=== PATIENT | female | born 1930 | race Caucasian/White ===

== ENCOUNTER → 2017-11-18 | Outpatient (CLI) | payer MEDICARE | END | disposition home or self-care (01) | LOC: OIH 13:12 | PROVIDERS: ATTEND Family Medicine | DX: I70.0 Atherosclerosis of aorta (principal); R68.83 Chills (without fever); R60.9 Edema, unspecified; Z88.3 Allergy status to other anti-infective agents; Z77.22 Contact with and (suspected) exposure to environmental tobacco smoke (acute) (chronic) | CPT/HCPCS: 71046 ==

== ENCOUNTER → 2018-02-24 | Outpatient (CLI) | payer MEDICARE | END | disposition home or self-care (01) | LOC: OIH 16:15 | PROVIDERS: ATTEND Internal Medicine | DX: R91.8 Other nonspecific abnormal finding of lung field (principal); M47.815 Spondylosis without myelopathy or radiculopathy, thoracolumbar region | CPT/HCPCS: 71046 ==

== ENCOUNTER 2018-03-08 18:01 | Inpatient (IN) | payer MEDICARE ==
[~2018-03-08] VITALS: Ht 170.2 cm; Wt 78.0 kg
[2018-03-08] MEDS: SODIUM CHLORIDE 0.9% 1000ML 1,000 ML IV SCH (19:58)
[2018-03-08] MEDS ORDERED: DIPHENHYDRAMINE HCL 25 MG CAPSULE PO PRN (20:00)
[2018-03-08] MEDS: AZITHROMYCIN 500MG+NS 250ML 250 ML IV SCH (20:00)
[2018-03-08] MEDS: METHYLPREDNISOLONE SOD SUCC 125MG/2ML VIAL IVP SCH (20:00)
[2018-03-08] MEDS: CEFTRIAXONE SODIUM 1 GM IV SCH (20:00)
[2018-03-08] MEDS ORDERED: ACETAMINOPHEN 325 MG TAB PO PRN (20:00)
[2018-03-08] MEDS ORDERED: ONDANSETRON HCL 4 MG/2 ML VIAL IV PRN (20:00)
[2018-03-08] MEDS ORDERED: FAMOTIDINE 20MG TAB 20 MG TAB ONE (20:19)
[2018-03-08] MEDS ORDERED: SODIUM CHLORIDE 0.9% 1000ML 1,000 ML IV ONE (20:19)
[2018-03-08] MEDS ORDERED: AZITHROMYCIN 500MG+NS 250ML 250 ML IV ONE (20:20)
[2018-03-08] MEDS ORDERED: METHYLPREDNISOLONE SOD SUCC 125MG/2ML VIAL ONE (20:20)
[2018-03-08] MEDS ORDERED: CEFTRIAXONE SODIUM 1 GM ONE (20:21)
[2018-03-08 20:35] LABS: BASOPHILS % (AUTO) 0.6 % (0.0-5.0); EOSINOPHILS % (AUTO) 1.8 % (0.0-8.0); HEMATOCRIT 38.4 % (36-48); LYMPHOCYTES % (AUTO) 24.1 % (21.0-51.0); MEAN CORPUSCULAR HEMOGLOBIN 30.2 pg (27.0-33.0); MEAN CORPUSCULAR HGB CONC 33.3 g/dL (32.0-36.0); MEAN CORPUSCULAR VOLUME 90.7 fL (79-99); MONOCYTES % (AUTO) 9.7 % (3.0-13.0); NEUTROPHILS % (AUTO) 63.8 % (40.0-77.0); NUCLEATED RED BLOOD CELLS 0.1 % (0.0-0.19); PLATELET COUNT (AUTO) 188 K/uL (130-400); RED BLOOD CELL COUNT(AUTO) 4.23 MIL/uL (4.00-5.50); RED CELL DISTRIBUTION WIDTH 13.7 % (11.0-15.5); WHITE BLOOD COUNT (AUTO) 6.5 K/uL (4.8-10.8)
[2018-03-08 20:45] LABS: ALBUMIN 3.6 g/dL (3.5-5.0); BILIRUBIN,TOTAL 0.5 mg/dL (0.2-1.0); CREATININE 1.4 mg/dL (0.5-1.5); POTASSIUM 4.5 mmol/L (3.5-5.1); TOTAL PROTEIN, SERUM 7.5 g/dL (6.0-8.3)
[2018-03-08] MEDS ORDERED: FAMOTIDINE 20MG TAB 20 MG TAB PO SCH (21:00)
[2018-03-08 21:09] LABS: B-TYPE NATRIURETIC PEPTIDE 140 pg/mL (0-100)
[2018-03-08 21:46] LABS: ERYTHROCYTE SEDIMENTATION RATE 52 MM/HR (0-30)
[2018-03-08 22:10] VITALS: BP 146/74
[2018-03-08] MEDS ORDERED: OSELTAMIVIR PHOSPHATE 75 MG CAP PO SCH ×2 (22:30→23:30)
[2018-03-08] MEDS ORDERED: AEC81 PO (23:06)
[2018-03-08] MEDS ORDERED: LOVA20TA3 PO (23:06)
[2018-03-08] MEDS ORDERED: TRIA1TAB91 PO (23:06)
[2018-03-08] MEDS ORDERED: LORA10TA7 PO (23:06)
[2018-03-08] MEDS ORDERED: LISI-613 PO (23:06)
[2018-03-08] MEDS ORDERED: LEVO50TA11 PO (23:06)
[2018-03-09] MEDS ORDERED: ALBUTEROL SULFATE 0.083% 2.5 MG/3 ML INH IH SCH
[2018-03-09] MEDS ORDERED: CLONIDINE HCL 0.1 MG TABLET PO PRN (02:30)
[2018-03-09] MEDS ORDERED: POTASSIUM CHLORIDE 20MEQ/100ML 100 ML IV PRN (02:30)
[2018-03-09] MEDS ORDERED: GLUCAGON 1MG KIT 1 MG ML IM PRN (02:30)
[2018-03-09] MEDS ORDERED: POTASSIUM CHLORIDE 20 MEQ ERTAB PO PRN (02:30)
[2018-03-09] MEDS ORDERED: GUAIFENESIN-DM 200/20 MG 10 ML PO PRN (02:30)
[2018-03-09] MEDS ORDERED: POTASSIUM CHLORIDE 10% ELIXIR 20 MEQ/15 ML UDCUP PO PRN (02:30)
[2018-03-09] MEDS ORDERED: LACTULOSE 20 GM/30 ML UDCUP PO PRN (02:30)
[2018-03-09] MEDS ORDERED: LIDOCAINE HCL-MPF 1% 2ML VIAL IJ PRN (02:30)
[2018-03-09] MEDS ORDERED: MAG HYDROX/AL HYDROX/SIMETH ES 30 ML SUSP UDCUP PO PRN (02:30)
[2018-03-09] MEDS ORDERED: ZOLPIDEM TARTRATE 5 MG TAB PO PRN (02:30)
[2018-03-09] MEDS ORDERED: DEXTROSE 50%-WATER 50 ML DISP.SYRIN IV PRN (02:30)
[2018-03-09] MEDS ORDERED: NITROGLYCERIN 0.4 MG SL TAB SL PRN (02:30)
[2018-03-09 04:37] VITALS: BP 110/60
[2018-03-09 04:52] LABS: HEMATOCRIT 35.2 % (36-48); MEAN CORPUSCULAR HEMOGLOBIN 29.9 pg (27.0-33.0); MEAN CORPUSCULAR HGB CONC 33.2 g/dL (32.0-36.0); PLATELET COUNT (AUTO) 172 K/uL (130-400); RED BLOOD CELL COUNT(AUTO) 3.91 MIL/uL (4.00-5.50); RED CELL DISTRIBUTION WIDTH 13.9 % (11.0-15.5)
[2018-03-09 05:11] LABS: BILIRUBIN,TOTAL 0.4 mg/dL (0.2-1.0); CREATININE 1.5 mg/dL (0.5-1.5); POTASSIUM 4.5 mmol/L (3.5-5.1); TOTAL PROTEIN, SERUM 6.6 g/dL (6.0-8.3)
[2018-03-09] MEDS: METHYLPREDNISOLONE SOD SUCC 125MG/2ML VIAL IVP SCH ×2 (05:20→12:15)
[2018-03-09] MEDS: SODIUM CHLORIDE 0.9% 1000ML 1,000 ML IV SCH ×2 (06:24→16:54)
[2018-03-09] MEDS: IPRATROPIUM/ALBUTEROL SULFATE 3 ML SOLUTION IH SCH ×2 (06:47→11:01)
[2018-03-09] MEDS: INSULIN R PO SS1 SQ SCH ×4 (07:30→21:00)
[2018-03-09 08:00] VITALS: BP 122/55
[2018-03-09] MEDS: OSELTAMIVIR SUSP 15 MG/ML (6 CAPS/29ML) PO SCH ×2 (08:44)
[2018-03-09] MEDS: ASPIRIN 81 MG EC TAB PO SCH (08:45)
[2018-03-09] MEDS: LORATADINE 10 MG TABLET PO SCH (08:45)
[2018-03-09] MEDS: FAMOTIDINE 20MG TAB 20 MG TAB PO SCH (08:45)
[2018-03-09] MEDS: LISINOPRIL 20 MG TABLET PO SCH (08:46)
[2018-03-09] MEDS: ENOXAPARIN SODIUM 40 MG/0.4 ML SYRINGE SQ SCH (08:47)
--- NOTE | 2018-03-09 11:42 | NUR ---
STATUS CHANGES, CHANGED TO IP STATUS; ORDER FROM DR. Hercules PRIOR TO ADMIT MD CHANGE.
[2018-03-09 12:00] VITALS: BP 144/71
[2018-03-09 16:00] VITALS: BP 119/58
[2018-03-09] MEDS ORDERED: IPRATROPIUM/ALBUTEROL SULFATE 3 ML SOLUTION IH PRN (16:00)
[2018-03-09 19:00] VITALS: BP 136/69
[2018-03-09] MEDS: AZITHROMYCIN 500MG+NS 250ML 250 ML IV SCH (20:32)
[2018-03-09] MEDS: CEFTRIAXONE SODIUM 1 GM IV SCH (20:32)
[2018-03-09] MEDS: ATORVASTATIN CALCIUM 10 MG TABLET PO SCH (20:32)
[2018-03-09] MEDS: GUAIFENESIN-DM 200/20 MG 10 ML PO PRN (20:50)
[2018-03-10] VITALS: BP 121/66
[2018-03-10 04:00] VITALS: BP 116/65
[2018-03-10] MEDS: GUAIFENESIN-DM 200/20 MG 10 ML PO PRN ×2 (04:32→19:48)
[2018-03-10] MEDS: SODIUM CHLORIDE 0.9% 1000ML 1,000 ML IV SCH ×2 (04:33→14:08)
[2018-03-10] MEDS: IPRATROPIUM/ALBUTEROL SULFATE 3 ML SOLUTION IH PRN ×3 (07:31→14:29)
[2018-03-10 08:00] VITALS: BP 97/50
[2018-03-10] MEDS: LORATADINE 10 MG TABLET PO SCH (08:01)
[2018-03-10] MEDS: FAMOTIDINE 20MG TAB 20 MG TAB PO SCH (08:01)
[2018-03-10] MEDS: LEVOTHYROXINE 50 MCG TABLET PO SCH (08:01)
[2018-03-10] MEDS: ASPIRIN 81 MG EC TAB PO SCH (08:01)
[2018-03-10] MEDS: OSELTAMIVIR SUSP 15 MG/ML (6 CAPS/29ML) PO SCH ×2 (08:02)
[2018-03-10] MEDS: ENOXAPARIN SODIUM 40 MG/0.4 ML SYRINGE SQ SCH (08:02)
[2018-03-10] MEDS: LISINOPRIL 20 MG TABLET PO SCH (09:00)
--- NOTE | 2018-03-10 11:54 | NUR ---
Patient taken to procedure for EGD
[2018-03-10 12:00] VITALS: BP 115/59
[2018-03-10 16:00] VITALS: BP 110/53
--- NOTE | 2018-03-10 16:00 | NUR ---
DAEV Luna PT, AAOX3, ENG SPEAKING,LIVES ALONE, JO-ANN KOWALSKI CLOSE BY/SUPPORTIVE WILL PROVIDE TRANSPORT, NO DME, NO HH, NO DEVON, MELISA W ADL, PLAN IS HOME; Addendum: 03/11/18 at 0826 by MARIAH AVENDANO RN Amended: Links added.
[2018-03-10 19:00] VITALS: BP 138/70
[2018-03-10] MEDS: CEFTRIAXONE SODIUM 1 GM IV SCH (19:46)
[2018-03-10] MEDS: ATORVASTATIN CALCIUM 10 MG TABLET PO SCH (19:46)
[2018-03-10] MEDS: AZITHROMYCIN 500MG+NS 250ML 250 ML IV SCH (19:47)
[2018-03-11] VITALS: BP 100/53
[2018-03-11 04:00] VITALS: BP 103/63
[2018-03-11] MEDS: SODIUM CHLORIDE 0.9% 1000ML 1,000 ML IV SCH (04:29)
[2018-03-11] MEDS: LEVOTHYROXINE 50 MCG TABLET PO SCH (06:04)
--- NOTE | 2018-03-11 06:11 | NUR ---
REMAINS COMFORTABLE ON HOURLY CHECKS.NO CHANGE IN ASSESSMENT NOTED.
[2018-03-11 08:10] VITALS: BP 116/73
[2018-03-11] MEDS: GUAIFENESIN-DM 200/20 MG 10 ML PO PRN (09:57)
[2018-03-11] MEDS: ENOXAPARIN SODIUM 40 MG/0.4 ML SYRINGE SQ SCH (09:58)
[2018-03-11] MEDS: ASPIRIN 81 MG EC TAB PO SCH (09:58)
[2018-03-11] MEDS: LISINOPRIL 20 MG TABLET PO SCH (09:58)
[2018-03-11] MEDS: FAMOTIDINE 20MG TAB 20 MG TAB PO SCH (09:58)
[2018-03-11] MEDS: LORATADINE 10 MG TABLET PO SCH (09:58)
[2018-03-11] MEDS: OSELTAMIVIR SUSP 15 MG/ML (6 CAPS/29ML) PO SCH ×2 (09:59)
--- NOTE | 2018-03-11 10:55 | NUR ---
CALLED DR MCDANIEL BECAUSE PATIENT SAID DR. MCDANIEL DISCAHRGED HER. DR MCDANIEL SAW THE PATIENT AROUND 5:45 NIGHT NURSE SAID THAT THE DR DIDN'T TELL HER ANYTHING. NOTICED A DISCHARGE SUMMARY, NO MED REC HAS BEEN DONE, PATIENT IS POSITIVE FOR FLU B AND ON ANTIBIOTICS FOR PNE. NO PRESCRIPTIONS LEFT IN CHART. NO DISCHARGE ORDER. NO ONE ANSWERED THE OFFICE LINE WILL CALL AGAIN
--- NOTE | 2018-03-11 11:40 | NUR ---
CALLER DR MCDANIEL AGAIN NO ANSWER
[2018-03-11 11:56] VITALS: BP 128/57
--- NOTE | 2018-03-11 13:15 | NUR ---
SPOKE TO CHARGE NURSE MARIA VICTORIA AND GOT A CELL PHONE NUMBER OF HIS. MAILBOX DID REFER TO DR MCDANIEL, LEFT MESSAGE WILL WAIT FOR CALL BACK
--- NOTE | 2018-03-11 13:39 | NUR ---
CALL TO DR. MCDANIEL T/C PLACED TO DR. MCDANIEL, LEFT MESSAGE, PENDING CALL BACK.
--- NOTE | 2018-03-11 13:45 | NUR ---
NO RESPONSE FROM DR MCDANIEL, CALLED CELL PHONE AGAIN WILL WAIT FOR CALL BACK
--- NOTE | 2018-03-11 14:15 | NUR ---
NOTIFIED CHARGE NURSE MARIA VICTORIA AND WE ARE WORKING ON TRYING TO GET A HOLD OF HIM
--- NOTE | 2018-03-11 14:28 | NUR ---
CALL TO DR. MCDANIEL'S OFFICE T/C PLACED TO DR. MCDANIEL'S OFFICE, SPOKE WITH FLORIAN, STATES BURGOS NOT HERE, INFORMED PT'S NURSE WANTS TO TALK TO HIM AND HAS BEEN CALL TWICE THIS MORNING, STATES WILL ASK EDUCATIONAL SPECIALIST TO PAGE NURSE.
--- NOTE | 2018-03-11 15:23 | NUR ---
SPOKE TO DR MCDANIEL, HE STATES THE HOSPITAL MADE A MISTAKE, I ASKED HIM ABOUT THE PATIENT, AND THAT IT WAS UNDER HIM FOR ADMITTING AND ATTENDING DR. HE SAID TO DISCHARGE THE PATIENT, I ASKED ABOUT THE MEDICATIONS FOR FLU B AND PNEUMONIA. HE SAID TO DISCHARGE THE PATIENT AND HE WILL CALL THE PATIENT AND SET HER UP WITH EVERYTHING SHE IS GONNA NEED. I AM GONNA FOLLOW HIS ORDER AND CONTINUE WITH THE DISCHARGE.
[2018-03-11 16:40] VITALS: BP 131/68
== END 2018-03-11 17:25 | disposition home or self-care (01) | DRG 193 ==
LOC: EDH 18:01 → EDHIP 19:37 → INTOOBSV 19:37 → OBSVTOIN 19:37 → 3DH 22:05
PROVIDERS: ADMIT Internal Medicine; ATTEND Internal Medicine
DX: J10.00 Influenza due to other identified influenza virus with unspecified type of pneumonia (principal); J96.90 Respiratory failure, unspecified, unspecified whether with hypoxia or hypercapnia; J44.1 Chronic obstructive pulmonary disease with (acute) exacerbation; J44.0 Chronic obstructive pulmonary disease with (acute) lower respiratory infection; J20.9 Acute bronchitis, unspecified; E03.9 Hypothyroidism, unspecified; I10 Essential (primary) hypertension; Z96.653 Presence of artificial knee joint, bilateral; Z85.3 Personal history of malignant neoplasm of breast; Z87.01 Personal history of pneumonia (recurrent); Z90.13 Acquired absence of bilateral breasts and nipples; Z90.710 Acquired absence of both cervix and uterus
CPT/HCPCS: 36415; 71046; 80053; 82948; 83880; 84132; 85025; 85027; 85651; 87040; 87804; 94640; 94664; G0378; J0456; J0696; J1650; J1815; J2930; J7030